=== PATIENT | male | born 1955 | race Caucasian/White ===

== ENCOUNTER 2021-05-30 17:51 | Outpatient (CLI) | payer MEDICARE, OTHER ==
[2021-05-30 16:45] LABS: ALT (SGPT) 45 U/L (8-55); AST (SGOT) 83 U/L (5-34); Albumin 4.5 g/dL (3.4-4.8); Alkaline Phosphatase 62 U/L (40-110); Anion Gap 16 mmol/L (10-20); BUN (Urea Nitrogen) 22 mg/dL (8.4-25.7); Bilirubin, Total 1.2 mg/dL (0.2-1.2); Calc. Creatinine Clearance 0 mL/min (70-130); Calcium 9.7 mg/dL (7.8-10.44); Carbon Dioxide 25 mmol/L (23-31); Cardiac Risk 1.8 (Less than 4.5); Chloride 107 mmol/L (98-107); Cholesterol 149 mg/dl (< 200 Desired); Globulin 2.7 g/dL (2.4-3.5); HDL Cholesterol 82 mg/dL (>60 Neg Risk); LDL Cholesterol, Calculated 58 mg/dL; Potassium 3.5 mmol/L (3.5-5.1); Protein, Total 7.2 g/dL (5.8-8.1); Sodium 144 mmol/L (136-145); Triglycerides 43 mg/dL (Less than 150)
[2021-05-30 18:15] LABS: Glucose 53 mg/dL (80-115)
[2021-05-30 21:55] LABS: Hemoglobin A1c 6.4 % (4.0-6.0)
== END 2021-05-30 17:52 | disposition home or self-care (01) ==
LOC: MADLAB 17:51
PROVIDERS: ATTEND Internal Medicine Endocrinology, Diabetes & Metabolism
DX: E10.65 Type 1 diabetes mellitus with hyperglycemia (principal)
CPT/HCPCS: 36415; 80053; 80061; 83036